=== PATIENT | male | born 1990 | race African-American/Black ===

== ENCOUNTER 2023-02-11 18:37 | Emergency (ER) | payer OTHER ==
[~2023-02-11] VITALS: Ht 167.6 cm; Wt 59.0 kg
[2023-02-11 18:50] VITALS: BP 127/74; PULSE 83; RESP 18; TEMP 97.8; O2SAT 98
[2023-02-11] MEDS ORDERED: ONDANSETRON 4 MG ODT PO ONE (19:35)
[2023-02-11] MEDS ORDERED: ACETAMINOPHEN 650 MG/20.3 ML UDC PO ONE (19:35)
[2023-02-11] MEDS ORDERED: FAMOTIDINE 20 MG TAB PO ONE (19:35)
[2023-02-11] MEDS ORDERED: FAMO-92 PO (20:34)
[2023-02-11] MEDS ORDERED: ACET-9800 PO (20:34)
[2023-02-11] MEDS ORDERED: ONDA-188 SL (20:34)
[2023-02-11 21:08] LABS: FLU A ANTIGEN negative (NEGATIVE); FLU B ANTIGEN NEGATIVE (NEGATIVE)
== END 2023-02-11 20:42 | disposition home or self-care (01) ==
LOC: MED 18:37
DX: B34.9 Viral infection, unspecified (principal); Z20.822 Contact with and (suspected) exposure to COVID-19; K92.0 Hematemesis; Z79.899 Other long term (current) drug therapy
CPT/HCPCS: 87426; 87804; 99284; Q0162